=== PATIENT | female | born 1955 | race Caucasian/White ===

== ENCOUNTER → 2017-04-18 | Outpatient (CLI) | payer OTHER ==
[2017-04-18 14:37] LABS: HEMATOCRIT 44.1 % (37.0-47.0); HEMOGLOBIN 14.6 g/dl (12.5-16.0); MEAN CELL VOLUME 83 fl (80.0-100.0); MEAN CORPUSCULAR HEMOGLOBIN 28 pg (27.0-31.0); MEAN CORPUSCULAR HGB CONC 33 g/dl (33.0-37.0); MEAN PLATELET VOLUME 10.4 fl (7.4-10.4); PLATELET COUNT 296 K/mm3 (130-400)
[2017-04-18 14:51] LABS: ALBUMIN 4.7 gm/dL (3.5-5.0); BILIRUBIN,TOTAL 0.6 mg/dL (0.0-1.0); CALCIUM 9.9 mg/dL (8.4-10.2); CREATININE, serum 0.75 mg/dL (0.52-1.25); TOTAL PROTEIN 8.2 gm/dL (6.4-8.2)
== END ==
LOC: COL.LAB 14:13
PROVIDERS: Physician Assistant
DX: R06.09 Other forms of dyspnea (principal)

== ENCOUNTER → 2017-04-18 | Outpatient (CLI) | payer OTHER | LOC: COL.RAD 15:32 | DX: R06.00 Dyspnea, unspecified (principal); R00.0 Tachycardia, unspecified; R79.89 Other specified abnormal findings of blood chemistry | CPT/HCPCS: Q9967 ==

== ENCOUNTER 2017-11-06 19:50 | Emergency (ER) | payer OTHER ==
[~2017-11-06] VITALS: Ht 162.6 cm; Wt 102.3 kg
[2017-11-06 20:04] VITALS: BP 133/67; TEMP 97.9
[2017-11-06] MEDS ORDERED: PRILOSEC 20MG20 MG PO (21:35)
[2017-11-06] MEDS ORDERED: 00186-0372-20 IH (21:35)
[2017-11-06] MEDS ORDERED: ULTRAM 50MG TAB50 MG PO (22:28)
[2017-11-06] MEDS ORDERED: MOTRIN 800800 MG/TAB PO (22:28)
[2017-11-06 22:55] VITALS: PULSE 95
== END 2017-11-06 22:55 | disposition home or self-care (01) ==
LOC: COL.ER 19:50
DX: S82.009A Unspecified fracture of unspecified patella, initial encounter for closed fracture (principal); S63.501A Unspecified sprain of right wrist, initial encounter; S60.512A Abrasion of left hand, initial encounter; J45.909 Unspecified asthma, uncomplicated; W01.0XXA Fall on same level from slipping, tripping and stumbling without subsequent striking against object, initial encounter; Y92.410 Unspecified street and highway as the place of occurrence of the external cause
CPT/HCPCS: L1846

== ENCOUNTER 2017-11-18 13:38 | Emergency (ER) | payer OTHER ==
[~2017-11-18] VITALS: Ht 162.6 cm; Wt 102.3 kg
[~2017-11-18 13:38] MED LIST: 00186-0372-20 IH; MOTRIN 800800 MG/TAB PO; PRILOSEC 20MG20 MG PO; ULTRAM 50MG TAB50 MG PO
[2017-11-18 13:41] VITALS: TEMP 97.9
[2017-11-18] MEDS ORDERED: LIDODERM 5% PATC1 EA TP (15:54)
[2017-11-18 16:18] VITALS: BP 138/79; PULSE 79
== END 2017-11-18 16:22 | disposition home or self-care (01) ==
LOC: COL.ER 13:38
DX: S20.211A Contusion of right front wall of thorax, initial encounter (principal); Z87.891 Personal history of nicotine dependence; W19.XXXA Unspecified fall, initial encounter; Y92.59 Other trade areas as the place of occurrence of the external cause
CPT/HCPCS: J1885; J2405; J3010

== ENCOUNTER 2019-11-03 21:19 | Emergency (ER) | payer OTHER ==
[~2019-11-03] VITALS: Ht 162.6 cm; Wt 107.3 kg
[~2019-11-03 21:19] MED LIST changes: +LIDODERM 5% PATC1 EA TP
[2019-11-03 21:23] VITALS: BP 108/76; TEMP 98.4
[2019-11-03 22:25] VITALS: PULSE 88
== END 2019-11-03 22:25 | disposition home or self-care (01) ==
LOC: COL.ER 21:19
DX: S93.402A Sprain of unspecified ligament of left ankle, initial encounter (principal); S80.12XA Contusion of left lower leg, initial encounter; K21.9 Gastro-esophageal reflux disease without esophagitis; Z87.891 Personal history of nicotine dependence; W19.XXXA Unspecified fall, initial encounter; X50.1XXA Overexertion from prolonged static or awkward postures, initial encounter; Y92.009 Unspecified place in unspecified non-institutional (private) residence as the place of occurrence of the external cause